=== PATIENT | male | born 1970 | race Caucasian/White ===

== ENCOUNTER 2017-08-13 23:29 | Emergency (ER) | payer BC ==
[2017-08-14] MEDS ORDERED: SILVER NITRATE APPLICATOR 1 APPLIC STICK..EA. 10/PACKAGE TOP ONE (01:25)
--- NOTE | 2017-08-14 01:41 | ER Document Report ---
ED Skin Rash/Insect Bite/Abscs - General Chief Complaint: Skin Sore(s) Stated Complaint: BLEEDING FROM POSSIBLE BITE Time Seen by Provider: 08/14/17 01:24 Mode of Arrival: Ambulatory Information source: Patient TRAVEL OUTSIDE OF THE [place] IN LAST 30 DAYS: No - HPI Patient complains to provider of: Other - bleeding Onset: Just prior to arrival Notes: Patient is here with complaints of bleeding lesion. States that he thinks he might have been bitten by an insect a few weeks ago on the right calf. He has been applying ointments to it and states that he was applying ointment to it earlier tonight when there was a scab on it. He pulled the scab off and then the wound started to bleed. States that he saw a stream of blood coming from the wound. He was able to get the blood to stop with direct pressure. Is not on blood thinning medications. He denies fever. Denies redness. He denies any significant pain. No nausea, vomiting, diarrhea. No dizziness. No chest pain or shortness of breath. No syncope. He denies any other complaints at this time. - Related Data Allergies/Adverse Reactions: No Known Allergies Allergy (Unverified 08/13/17 23:35) Past Medical History - Social History Smoking Status: Unknown if Ever Smoked Family History: Reviewed & Not Pertinent Review of Systems - Review of Systems -: Yes All other systems reviewed and negative Physical Exam - Vital signs Vitals: Temp Pulse Resp BP Pulse Ox 99.4 F 114 H 20 116/79 97 08/13/17 23:59 08/13/17 23:59 08/13/17 23:59 08/13/17 23:59 08/13/17 23:59 - Notes Notes: GENERAL: alert, cooperative, nontoxic, no distress. HEAD: normocephalic, atraumatic EYES: conjunctiva pink without discharge, no external redness or swelling. EARS: no external swelling, no external redness NOSE: atraumatic, no external swelling MOUTH/THROAT: mucous membranes moist and pink NECK: soft, supple, full range of motion, no meningismus. CHEST: no distress, lungs clear and equal throughout. No wheezing, rales, rhonchi. CARDIAC: regular rate and rhythm, no murmur, normal capillary refill, normal pulses. BACK: full range of motion, no CVA tenderness. EXTREMITIES: full range of motion of all extremities. No redness, no swelling. Superficial lesion to the right posterior calf. Small amount of venous oozing noted. No pulsatile blood flow. There is no surrounding redness. No fluctuance. No drainage. Normal pulse and sensation distally. No rash. NEURO: alert and oriented 3, no focal deficits, full range of motion of all extremities. PYSCH: appropriate mood, affect. Patient is cooperative. SKIN: pink, warm, dry, no rash. Course - Re-evaluation Re-evalutation: 08/14/17 02:03 Patient is nontoxic-appearing with stable vitals. The patient is here with a bleeding lesion to the right lower leg. He thinks he may have been bitten by a bug a few weeks ago. States that he had formed a scab over this area and tonight when he picked the scab off it started to bleed. He states that it bled quite a bit and was having trouble getting it stopped. On exam he has a superficial wound has some mild old venous oozing. Possible it could be near superficial varicose vein. There is no pulsatile blood at this time. There is no redness or signs of infection. Patient had the area cleaned and using silver nitrate I was able to cauterize the lesion. There was no further bleeding. I then applied a quick clot dressing as well as a Telfa and a Coban dressing. At this point the patient has no active bleeding. He was instructed to keep this dressing in place for the next 48 hours. After that he can remove the dressing, gently clean the wound. And avoid picking the scab. He was instructed that if it starts to bleed again to add more gauze and pressure to the dressing he has on at this time. If he is unable to get that to stop bleeding and he should follow up or return. He should follow-up sooner if he develops any fevers, or has any further concerns. The patient's emergency department workup and current diagnosis were explained to the patient and or family. Follow-up instructions were provided. Medications if prescribed were discussed. Instructions for when to return to the emergency department including specific worrisome symptoms were discussed with the patient and/or family. - Vital Signs Vital signs: Temp Pulse Resp BP Pulse Ox 99.4 F 114 H 20 116/79 97 08/13/17 23:59 06/18/18 23:59 08/13/17 23:59 08/13/17 23:59 08/13/17 23:59 Discharge - Discharge Clinical Impression: Bleeding from wound Condition: Stable Disposition: HOME, SELF-CARE Instructions: Dressing Instructions for Open Wounds ([facility]) Additional Instructions: Keep dressing in place for the next 48 hours. Afterward you can clean the wound gently with soap and water. Follow-up for worsening pain, fever, redness , drainage, numbness, tingling, weakness, any further concerns. If the wound starts to bleed again, apply pressure. If you are unable to get the wound to stop bleeding, have this reevaluated or return the emergency department. Forms: Smoking Cessation Education Referrals: WILLIAM RIVERA MD [HONORARY] - Follow up as needed
[2017-08-14 02:32] VITALS: BP 112/78
== END 2017-08-14 02:32 | disposition home or self-care (01) ==
LOC: ER 23:29
DX: L98.9 Disorder of the skin and subcutaneous tissue, unspecified (principal); R58 Hemorrhage, not elsewhere classified
CPT/HCPCS: 99283

== ENCOUNTER → 2019-09-08 | Outpatient (CLI) | payer BC ==
--- NOTE | 2019-09-08 12:52 | RADIOLOGY REPORT (SQ) ---
EXAM DESCRIPTION: U/S ABDOMEN LIMITED W/O DOP IMAGES COMPLETED DATE/TIME: 09/08/2019 12:36 pm REASON FOR STUDY: (R10.11)RIGHT UPPER QUADRANT PAIN R10.11 RIGHT UPPER QUADRANT PAIN COMPARISON: None. TECHNIQUE: Dynamic and static grayscale images acquired of the abdomen and recorded on PACS. Additio nal selected color Doppler and spectral images recorded. LIMITATIONS: None. FINDINGS: PANCREAS: No masses. Visualized pancreatic duct normal caliber. LIVER: Slightly increased echogenicity. No masses. LIVER VASCULATURE: Normal directional flow of the main portal vein and hepatic veins. GALLBLADDER: No stones. Normal wall thickness. No pericholecystic fluid. ULTRASOUND-DETECTED HERNANDEZ'S SIGN: Negative. INTRAHEPATIC DUCTS AND COMMON DUCT: CBD and intrahepatic ducts normal caliber. No filling defects. AORTA: No aneurysm. RIGHT KIDNEY: Normal size, 10.8 cm. Normal echogenicity. No solid or suspicious masses. No hydroneph rosis. No calcifications. PERITONEAL AND RIGHT PLEURAL SPACE: No ascites or effusions. OTHER: No other significant findings. IMPRESSION: Mild hepatic steatosis. TECHNICAL DOCUMENTATION: JOB ID: [id number] 2010 [employer]- All Rights Reserved Reading location - IP/workstation name: [email or web address]
== END ==
LOC: RAD 12:01
PROVIDERS: ATTEND Nurse Practitioner Family
DX: R10.11 Right upper quadrant pain (principal); K76.0 Fatty (change of) liver, not elsewhere classified
CPT/HCPCS: 76705

== ENCOUNTER 2019-09-09 12:42 | Inpatient (IN) | payer BC ==
[~2019-09-09 12:42] MED LIST: GLYCOPYRROLATE 1 MG/5 ML VIAL ONE; KETOROLAC TROMETHAMINE 60 MG/2 ML SDV ONE; NEOSTIGMINE METHYLSULFATE 10 MG/10 ML VIAL ONE; ONDANSETRON HCL INJ/PF 4 MG/2 ML SDV ONE; PHENYLEPHRINE HCL INJ/PF 10 MG/1 ML SDV ONE; ROCURONIUM BROMIDE INJ 50 MG/5 ML VIAL IV ONE; SUCCINYLCHOLINE CHLORIDE INJ 200 MG/10 ML VIAL ONE
[2019-09-09] MEDS ORDERED: RINGERS LACTATED IV ONE (13:38)
[2019-09-09] MEDS ORDERED: ACETAMINOPHEN 325 MG TABLET PO ONE (13:38)
--- NOTE | 2019-09-09 13:39 | ER Document Report ---
ED GI/ - General Chief Complaint: Fever Stated Complaint: ABDOMINAL PAIN/FEVER Time Seen by Provider: 09/09/19 13:19 Information source: Patient Notes: Patient presents with right upper quadrant pain for the past 3 days. Patient states yesterday had a temperature of 104. Patient denies any cough or cold symptoms. Patient denies any nausea vomiting or diarrhea. Patient denies any urinary symptoms. Patient states that he was seen in urgent care and told he had H. pylori. Patient was prescribed multiple antibiotics as well as omeprazole yesterday. TRAVEL OUTSIDE OF THE [place] IN LAST 30 DAYS: No - HPI Patient complains to provider of: Abdominal pain. No: Vomiting Onset: Other - 3 days Timing/Duration: Persistent Quality of pain: Achy Location: RUQ Associated symptoms: Fever. denies: Chest pain, Dizzy, Dysuria, Nausea, Urinary hesitancy, Urinary frequency, Urinary retention, Urinary urgency, Vomiting Exacerbated by: Denies Relieved by: Denies Similar symptoms previously: No Recently seen / treated by doctor: Yes - Related Data Allergies/Adverse Reactions: No Known Allergies Allergy (Unverified 08/13/17 23:35) Past Medical History - General Information source: Patient - Social History Smoking Status: Never Smoker Frequency of alcohol use: None Drug Abuse: None Occupation: land survey Lives with: Family Family History: Reviewed & Not Pertinent Renal/ Medical History: Denies: Hx Peritoneal Dialysis GI Medical History: Reports: Other - h pylori Surgical Hx: Negative Review of Systems - Review of Systems Constitutional: Chills, Fever EENT: No symptoms reported Cardiovascular: No symptoms reported. denies: Chest pain Respiratory: No symptoms reported. denies: Cough, Short of breath Gastrointestinal: Abdominal pain. denies: Diarrhea, Nausea, Vomiting Genitourinary: No symptoms reported. denies: Dysuria, Flank pain Male Genitourinary: No symptoms reported Musculoskeletal: No symptoms reported. denies: Back pain Skin: No symptoms reported Hematologic/Lymphatic: No symptoms reported Neurological/Psychological: No symptoms reported. denies: Headaches Physical Exam - Vital signs Vitals: Temp Pulse Resp BP Pulse Ox 102.7 F H 129 H 20 124/92 H 96 09/09/19 12:48 09/09/19 12:48 09/09/19 12:48 09/09/19 12:48 07/14/20 12:48 - General General appearance: Appears well, Alert In distress: None - HEENT Head: Normocephalic, Atraumatic Eyes: Normal Conjunctiva: Normal Nasal: Normal Mouth/Lips: Normal Mucous membranes: Normal Neck: Normal, Supple. No: Lymphadenopathy, Meningismus - Respiratory Respiratory status: No respiratory distress Chest status: Nontender Breath sounds: Rales - Right lower lobe Chest palpation: Normal - Cardiovascular Rhythm: Regular Heart sounds: S1 appreciated, S2 appreciated Murmur: No - Abdominal Inspection: Normal Distension: No distension Bowel sounds: Normal Tenderness: Tender - RUQ, mild RLQ tenderness Organomegaly: No organomegaly - Back Back: Normal, Nontender. No: CVA tenderness - Extremities General upper extremity: Normal inspection, Nontender, Normal strength General lower extremity: Normal inspection, Nontender, Normal strength - Neurological Neuro grossly intact: Yes Cognition: Normal Strawn Coma Scale Eye Opening: Spontaneous Strawn Coma Scale Verbal: Oriented Strawn Coma Scale Motor: Obeys Commands Jhonatan Coma Scale Total: 15 - Psychological Associated symptoms: Normal affect, Normal mood - Skin Skin Temperature: Warm Skin Moisture: Dry Skin Color: Normal Course - Re-evaluation Re-evalutation: 09/09/19 16:07 Radiologist called stating patient CT report demonstrated acute appendicitis. Call placed for consultation with surgeon. 09/09/19 16:[address] Pryor who does agree to evaluate patient. Recommends starting Ancef and Flagyl and he will be down to see patient. 09/09/19 16:15 Nursing staff advised of need for rapid COVID test at this time. 09/09/19 17:10 RN states that she was advised that patient was not to be admitted per the surgeon. Call was then placed for consultation with Dr. Pryor again advising him of patient's leukocytosis with a shift, persistent tachycardia and now hypot ension despite IV fluid administration of 30 mL/kg. Discussed concerns about sepsis criteria. Discussed results of chest x-ray as well as urinalysis. Offered consultation with medicine at this time, Dr. Pryor advises holding any medicine consult at this time. Consulted with Dr. Constantino who advises giving additional liter of fluids. - Vital Signs Vital signs: Temp Pulse Resp BP Pulse Ox 98.5 F 96 19 100/90 H 97 09/09/19 18:10 09/09/19 18:10 09/09/19 19:00 09/09/19 19:00 09/09/19 19:00 - Laboratory Result Diagrams: 09/09/19 14:13 09/09/19 14:13 Laboratory results interpreted by me: 09/09/19 09/09/19 09/09/19 14:13 14:13 14:13 WBC 15.7 H RBC 5.61 H Hgb 18.6 H Hct 53.1 H Seg Neuts % (Manual) 89 H Band Neutrophils % 1 L Lymphocytes % (Manual) 2 L Abs Neuts (Manual) 14.1 H Abs Lymphs (Manual) 0.3 L Creatinine 1.31 H Est GFR (MDRD) Non-Af 58 L AST 131 H ALT 261 H Total Protein 9.0 H Urine Protein 100 H Urine Urobilinogen 4.0 H Ur Leukocyte Esterase MODERATE H Labs- All tests 24 hr 09/09/19 09/09/19 09/09/19 14:13 14:13 14:13 WBC 15.7 H RBC 5.61 H Hgb 18.6 H Hct 53.1 H MCV 95 MCH 33.1 MCHC 35.0 RDW 12.8 Plt Count 185 Lymph % (Auto) Not Reportable Schuyler % (Auto) Not Reportable Eos % (Auto) Not Reportable Baso % (Auto) Not Reportable Absolute Neuts (auto) Not Reportable Absolute Lymphs (auto) Not Reportable Absolute Monos (auto) Not Reportable Absolute Eos (auto) Not Reportable Absolute Basos (auto) Not Reportable Total Counted 100 Seg Neutrophils % Not Reportable Seg Neuts % (Manual) 89 H Band Neutrophils % 1 L Lymphocytes % (Manual) 2 L Monocytes % (Manual) 7 Eosinophils % (Manual) 1 Basophils % (Manual) 0 Abs Neuts (Manual) 14.1 H Abs Lymphs (Manual) 0.3 L Abs Monocytes (Manual) 1.1 Absolute Eos (Manual) 0.2 Abs Basophils (Manual) 0.0 Toxic Granulation SLIGHT Platelet Comment ADEQUATE RBC Morph Comment NORMO-CYTIC/CHROMIC PT 13.9 INR 1.07 VBG pH VBG pCO2 VBG HCO3 VBG Base Excess Sodium 137.2 Potassium 3.9 Chloride 101 Carbon Dioxide 28 Anion Gap 8 BUN 18 Creatinine 1.31 H Est GFR ( Amer) > 60 Est GFR (MDRD) Non-Af 58 L Glucose 110 POC Glucose Lactic Acid Calcium 9.3 Total Bilirubin 1.0 Direct Bilirubin 0.2 Neonat Total Bilirubin Not Reportable Neonat Direct Bilirubin Not Reportable Neonat Indirect Bili Not Reportable AST 131 H ALT 261 H Alkaline Phosphatase 79 Total Protein 9.0 H Albumin 4.7 Lipase 181.2 Urine Color Urine Appearance Urine pH Ur Specific [place] Urine Protein Urine Glucose (UA) Urine Ketones Urine Blood Urine Nitrite Urine Bilirubin Urine Urobilinogen Ur Leukocyte Esterase Urine WBC (Auto) Urine RBC (Auto) Squamous Epi Cells Auto Amorphous Sediment Auto Urine Mucus (Auto) Urine Ascorbic Acid 09/09/19 09/09/19 09/09/19 14:13 14:13 14:13 WBC RBC Hgb Hct MCV MCH MCHC RDW Plt Count Lymph % (Auto) Schuyler % (Auto) Eos % (Auto) Baso % (Auto) Absolute Neuts (auto) Absolute Lymphs (auto) Absolute Monos (auto) Absolute Eos (auto) Absolute Basos (auto) Total Counted Seg Neutrophils % Seg Neuts % (Manual) Band Neutrophils % Lymphocytes % (Manual) Monocytes % (Manual) Eosinophils % (Manual) Basophils % (Manual) Abs Neuts (Manual) Abs Lymphs (Manual) Abs Monocytes (Manual) Absolute Eos (Manual) Abs Basophils (Manual) Toxic Granulation Platelet Comment RBC Morph Comment PT INR VBG pH 7.41 VBG pCO2 44.3 VBG HCO3 27.6 VBG Base Excess 2.4 Sodium Potassium Chloride Carbon Dioxide Anion Gap BUN Creatinine Est GFR ( Amer) Est GFR (MDRD) Non-Af Glucose POC Glucose Lactic Acid 1.0 Calcium Total Bilirubin Direct Bilirubin Neonat Total Bilirubin Neonat Direct Bilirubin Neonat Indirect Bili AST ALT Alkaline Phosphatase Total Protein Albumin Lipase Urine Color JENI Urine Appearance SLIGHTLY-CLOUDY Urine pH 6.0 Ur Specific [place] 1.026 Urine Protein 100 H Urine Glucose (UA) NEGATIVE Urine Ketones NEGATIVE Urine Blood NEGATIVE Urine Nitrite NEGATIVE Urine Bilirubin NEGATIVE Urine Urobilinogen 4.0 H Ur Leukocyte Esterase MODERATE H Urine WBC (Auto) 56 Urine RBC (Auto) 5 Squamous Epi Cells Auto 1 Amorphous Sediment Auto TRACE Urine Mucus (Auto) RARE Urine Ascorbic Acid NEGATIVE 09/09/19 14:18 WBC RBC Hgb Hct MCV MCH MCHC RDW Plt Count Lymph % (Auto) Schuyler % (Auto) Eos % (Auto) Baso % (Auto) Absolute Neuts (auto) Absolute Lymphs (auto) Absolute Monos (auto) Absolute Eos (auto) Absolute Basos (auto) Total Counted Seg Neutrophils % Seg Neuts % (Manual) Band Neutrophils % Lymphocytes % (Manual) Monocytes % (Manual) Eosinophils % (Manual) Basophils % (Manual) Abs Neuts (Manual) Abs Lymphs (Manual) Abs Monocytes (Manual) Absolute Eos (Manual) Abs Basophils (Manual) Toxic Granulation Platelet Comment RBC Morph Comment PT INR VBG pH VBG pCO2 VBG HCO3 VBG Base Excess Sodium Potassium Chloride Carbon Dioxide Anion Gap BUN Creatinine Est GFR ( Amer) Est GFR (MDRD) Non-Af Glucose POC Glucose 106 Lactic Acid Calcium Total Bilirubin Direct Bilirubin Neonat Total Bilirubin Neonat Direct Bilirubin Neonat Indirect Bili AST ALT Alkaline Phosphatase Total Protein Albumin Lipase Urine Color Urine Appearance Urine pH Ur Specific [place] Urine Protein Urine Glucose (UA) Urine Ketones Urine Blood Urine Nitrite Urine Bilirubin Urine Urobilinogen Ur Leukocyte Esterase Urine WBC (Auto) Urine RBC (Auto) Squamous Epi Cells Auto Amorphous Sediment Auto Urine Mucus (Auto) Urine Ascorbic Acid - Diagnostic Test Radiology reviewed: Image reviewed, Reports reviewed Discharge - Discharge Clinical Impression: Fever Qualifiers: Fever type: unspecified Qualified Code(s): R50.9 - Fever, unspecified Abdominal pain Qualifiers: Abdominal location: unspecified location Qualified Code(s): R10.9 - Unspecified abdominal pain Acute appendicitis Qualifiers: Acute appendicitis type: unspecified acute appendicitis type Qualified Code(s): K35.80 - Unspecified acute appendicitis Condition: Fair Disposition: ADMITTED INPATIENT Admitting Provider: Surgicalist
--- NOTE | 2019-09-09 14:32 | EKG REPORT ---
SEVERITY:- OTHERWISE NORMAL ECG - SINUS TACHYCARDIA ATRIAL PREMATURE COMPLEX : Confirmed by: Sam Mcdonald MD 09-Sep-2019 14:31:15
[2019-09-09 14:50] LABS: VENOUS BLOOD BASE EXCESS 2.4 mmol/L; VENOUS BLOOD HCO3 27.6 mmol/L (20-32); VENOUS BLOOD PCO2 44.3 mmHg (35-63); VENOUS BLOOD PH 7.41 (7.30-7.42)
[2019-09-09 14:51] LABS: AMORPHOUS SEDIMENT,URINE TRACE /HPF
[2019-09-09 14:52] LABS: INTERNATIONAL RATION (INR) 1.07; PROTHROMBIN TIME 13.9 SEC (11.4-15.4)
[2019-09-09 14:53] LABS: APPEARANCE,URINE SLIGHTLY-CLOUDY; BILIRUBIN,URINE NEGATIVE (NEGATIVE); COLOR,URINE AMBER; GLUCOSE, URINE NEGATIVE (NEGATIVE); KETONES,URINE NEGATIVE (NEGATIVE); LEUKOCYTE ESTERASE,URINE MODERATE (NEGATIVE); NITRITE,URINE NEGATIVE (NEGATIVE); PROTEIN,URINE 100 mg/dL (NEGATIVE); URINE SPECIFIC GRAVITY 1.026
--- NOTE | 2019-09-09 14:57 | RADIOLOGY REPORT (SQ) ---
EXAM DESCRIPTION: CHEST SINGLE VIEW IMAGES COMPLETED DATE/TIME: 09/09/2019 2:45 pm REASON FOR STUDY: RUQ pain, fever COMPARISON: None. EXAM PARAMETERS: NUMBER OF VIEWS: One view. TECHNIQUE: Single frontal radiographic view of the chest acquired. RADIATION DOSE: NA LIMITATIONS: None. FINDINGS: LUNGS AND PLEURA: Low lung volumes limits the examination. Mild linear subsegmental pare nchymal densities in the lower lungs, may be on the basis of atelectasis/infiltrates. No pneumothora x or pleural effusions. MEDIASTINUM AND HILAR STRUCTURES: Normal contour. HEART AND VASCULAR STRUCTURES: Heart normal in size. Normal vasculature. BONES: No acute findings. HARDWARE: None in the chest. OTHER: No other significant finding. IMPRESSION: 1. Low lung volumes limits examination. Mild linear subsegmental parenchymal densities in the lower lungs may be on the basis of atelectasis/infiltrates. TECHNICAL DOCUMENTATION: JOB ID: [id number] 2010 [employer]- All Rights Reserved Reading location - IP/workstation name: [email or web address]
[2019-09-09 14:58] LABS: HEMATOCRIT 53.1 % (37.9-51.0); HEMOGLOBIN 18.6 g/dL (13.5-17.0); MEAN CORPUSCULAR HEMOGLOBIN 33.1 pg (27.0-33.4); MEAN CORPUSCULAR VOLUME 95 fl (80-97); PLATELET COUNT 185 10^3/uL (150-450); RED BLOOD COUNT 5.61 10^6/uL (4.35-5.55); RED CELL DISTRIBUTION WIDTH 12.8 % (11.5-14.0); WHITE BLOOD COUNT 15.7 10^3/uL (4.0-10.5)
[2019-09-09 15:06] LABS: ALBUMIN 4.7 g/dL (3.5-5.0); ALKALINE PHOSPHATASE 79 U/L (38-126); ANION GAP 8 (5-19); ASPARTATE AMINO TRANSFERASE 131 U/L (17-59); BILIRUBIN,DIRECT 0.2 mg/dL (0.0-0.4); BLOOD UREA NITROGEN 18 mg/dL (7-20); CALCIUM 9.3 mg/dL (8.4-10.2); CARBON DIOXIDE 28 mmol/L (22-30); CHLORIDE 101 mmol/L (98-107); GLUCOSE 110 mg/dL (75-110); POTASSIUM 3.9 mmol/L (3.6-5.0)
[2019-09-09 15:17] LABS: ABSOLUTE LYMPHOCYTES# (MANUAL) 0.3 10^3/uL (0.5-4.7); ABSOLUTE MONOCYTES # (MANUAL) 1.1 10^3/uL (0.1-1.4); BAND NEUTROPHILS % (MANUAL) 1 % (3-5); BASOPHILS % (MANUAL) 0 % (0-2); EOSINOPHILS % (MANUAL) 1 % (0-6); LYMPHOCYTES % (MANUAL) 2 % (13-45); MONOCYTES % (MANUAL) 7 % (3-13); SEGMENTED NEUTROPHILS % (MAN) 89 % (42-78); TOTAL CELLS COUNTED 100
[2019-09-09 15:19] LABS: PLATELET COMMENT ADEQUATE; RBC MORPHOLOGY COMMENT NORMO-CYTIC/CHROMIC; TOXIC GRANULATION SLIGHT
[2019-09-09] MEDS ORDERED: CEFTRIAXONE 1 GM/D5W RTU 1 GM/50 ML RTUPB IV ONE (15:22)
[2019-09-09] MEDS ORDERED: FENTANYL CITRATE INJ/PF 100 MCG/2 ML AMPUL IV ONE ×3 (15:28→19:50)
[2019-09-09] MEDS ORDERED: PIPERACILLIN/TAZOBACTAM 3.375 GM VIAL IV ONE (16:11)
[2019-09-09] MEDS ORDERED: METRONIDAZOLE 500 MG/NS RTU 500 MG/100 ML RTUPB IV ONE (16:11)
[2019-09-09] MEDS ORDERED: CEFAZOLIN 1 GM/D5W RTU 1 GM/50 ML RTUPB IV ONE (16:11)
--- NOTE | 2019-09-09 16:11 | RADIOLOGY REPORT (SQ) ---
EXAM DESCRIPTION: CT ABD/PELVIS WITH IV ONLY IMAGES COMPLETED DATE/TIME: 09/09/2019 3:44 pm REASON FOR STUDY: RUQ, RLQ pain, +fever COMPARISON: None. TECHNIQUE: CT scan of the abdomen and pelvis performed using helical scanning technique with dynamic intravenous contrast injection. No oral contrast. Images reviewed with lung, soft tissue, and bone windows. Reconstructed coronal and sagittal MPR images reviewed. Delayed images for evaluation of the urinary system also acquired. All images stored on PACS. All CT scanners at this facility use dose modulation, iterative reconstruction, and/or weight based d osing when appropriate to reduce radiation dose to as low as reasonably achievable (ALARA). [facility]: Dose Right [facility]: CareDose [facility]: Dose Right [facility]: Teradose 4D [facility]: Jivox CONTRAST TYPE AND DOSE: contrast/concentration: Isovue 350.00 mmol/ml; Total Contrast Delivered: 96. 0 ml; Total Saline Delivered: 55.0 ml RENAL FUNCTION: GFR > 60. RADIATION DOSE: CT Rad equipment meets quality standard of care and radiation dose reduction techniq ues were employed. CTDIvol: 11.5 - 15.9 mGy. DLP: 1708 mGy-cm.. LIMITATIONS: None. FINDINGS: LOWER CHEST: No significant findings. No nodules or infiltrates. LIVER: Normal size. No masses. No dilated ducts. SPLEEN: Normal size. No focal lesions. PANCREAS: No masses. No significant calcifications. No adjacent inflammation or peripancreatic fluid collections. Pancreatic duct not dilated. GALLBLADDER: No identified stones by CT criteria. No inflammatory changes to suggest cholecystitis. ADRENAL GLANDS: No significant masses or asymmetry. RIGHT KIDNEY AND URETER: No solid masses. No significant calcifications. No hydronephrosis or hyd roureter. LEFT KIDNEY AND URETER: No solid masses. No significant calcifications. No hydronephrosis or hydr oureter. AORTA AND VESSELS: No aneurysm. No dissection. Renal arteries, SMA, celiac without stenosis. RETROPERITONEUM: No retroperitoneal adenopathy, hemorrhage or masses. BOWEL AND PERITONEAL CAVITY: Diverticulosis sigmoid colon. No masses or inflammatory changes. No jaron e fluid or peritoneal masses. APPENDIX: Inflammation associated with dilated appendix Preview PELVIS: No mass. No free fluid. Normal bladder. ABDOMINAL WALL: No masses. No hernias. BONES: No significant or acute findings. OTHER: No other significant finding. IMPRESSION: Acute appendicitis. TECHNICAL DOCUMENTATION: JOB ID: [id number] Quality ID # [id number]: Final reports with documentation of one or more dose reduction techniques (e.g., Au tomated exposure control, adjustment of the mA and/or kV according to patient size, use of iterative reconstruction technique) 2010 [employer]- All Rights Reserved Reading location - IP/workstation name: [email or web address]
--- NOTE | 2019-09-09 16:54 | PDOC H&P ---
History of Present Illness Admission Date/PCP: NO LOCALMD History of Present Illness: MAGO DO is a 49 year old malePatient presents with right upper quadrant pain for the past 3 days. Patient states yesterday had a temperature of 104. Patient denies any cough or cold symptoms. Patient denies any nausea vomiting or diarrhea. Patient denies any urinary symptoms. Patient states that he was seen in urgent care and told he had H. pylori. Patient was prescribed multiple antibiotics as well as omeprazole yesterday Past Medical History GI Medical History: Reports: Other - h pylori Social History Lives with: Family Smoking Status: Never Smoker Family History Family History: Reviewed & Not Pertinent Parental Family History Reviewed: No Children Family History Reviewed: NA Sibling(s) Family History Reviewed.: NA Medication/Allergy Allergies/Adverse Reactions: No Known Allergies Allergy (Unverified 08/13/17 23:35) Review of Systems Constitutional: ABSENT: chills, fever(s), headache(s), weight gain, weight loss Ears: ABSENT: hearing changes Nose, Mouth, and Throat: ABSENT: as per HPI, headache(s), mouth pain, sore throat, vertigo, other Cardiovascular: ABSENT: chest pain, dyspnea on exertion, edema, orthropnea, palpitations Respiratory: ABSENT: cough, hemoptysis Gastrointestinal: PRESENT: abdominal pain, nausea Genitourinary: ABSENT: as per HPI, difficulty urinating, dysuria, hematuria, nocturia, other Musculoskeletal: ABSENT: as per HPI, back pain, deformity, joint swelling, musc le weakness, other Integumentary: ABSENT: rash, wounds Neurological: ABSENT: abnormal gait, abnormal speech, confusion, dizziness, focal weakness, syncope Psychiatric: ABSENT: anxiety, depression, homidical ideation, suicidal ideation Endocrine: ABSENT: as per HPI, cold intolerance, flushing, heat intolerance, menstrual abnormalities, polydipsia, polyphagia, polyuria, other Hematologic/Lymphatic: ABSENT: as per HPI, easy bleeding, easy bruising, lymphadenopathy, other Physical Exam Vital Signs: Temp Pulse Resp BP Pulse Ox 99.7 F 129 H 22 H 92/63 L 97 09/09/19 15:21 09/09/19 12:48 09/09/19 16:00 09/09/19 16:00 09/09/19 16:00 Intake & Output 09/08/19 09/09/19 09/10/19 06:59 06:59 06:59 Intake Total 50 Balance 50 Weight 83.915 kg General appearance: PRESENT: no acute distress Head exam: PRESENT: normocephalic Eye exam: PRESENT: EOMI Ear exam: PRESENT: TM's normal bilaterally Mouth exam: PRESENT: moist Neck exam: PRESENT: full ROM Respiratory exam: PRESENT: clear to auscultation geoffrey Cardiovascular exam: PRESENT: RRR Pulses: PRESENT: normal radial pulses, normal femoral pulses Vascular exam: PRESENT: normal capillary refill GI/Abdominal exam: PRESENT: rebound, tenderness Rectal exam: PRESENT: deferred Extremities exam: PRESENT: full ROM Musculoskeletal exam: PRESENT: full ROM Neurological exam: PRESENT: alert, awake, oriented to person, oriented to place Psychiatric exam: PRESENT: appropriate affect Skin exam: PRESENT: dry Results Laboratory Results: 09/09/19 14:13 09/09/19 14:13 09/09/19 09/09/19 09/09/19 14:13 14:13 14:13 WBC 15.7 H RBC 5.61 H Hgb 18.6 H Hct 53.1 H MCV 95 MCH 33.1 MCHC 35.0 RDW 12.8 Plt Count 185 Seg Neutrophils % Not Reportable VBG pH 7.41 VBG pCO2 44.3 VBG HCO3 27.6 VBG Base Excess 2.4 Sodium 137.2 Potassium 3.9 Chloride 101 Carbon Dioxide 28 Anion Gap 8 BUN 18 Creatinine 1.31 H Est GFR ( Amer) > 60 Glucose 110 Lactic Acid Calcium 9.3 Total Bilirubin 1.0 AST 131 H Alkaline Phosphatase 79 Total Protein 9.0 H Albumin 4.7 Lipase 181.2 Urine Color Urine Appearance Urine pH Ur Specific [place] Urine Protein Urine Glucose (UA) Urine Ketones Urine Blood Urine Nitrite Ur Leukocyte Esterase Urine WBC (Auto) Urine RBC (Auto) 09/09/19 09/09/19 14:13 14:13 WBC RBC Hgb Hct MCV MCH MCHC RDW Plt Count Seg Neutrophils % VBG pH VBG pCO2 VBG HCO3 VBG Base Excess Sodium Potassium Chloride Carbon Dioxide Anion Gap BUN Creatinine Est GFR ( Amer) Glucose Lactic Acid 1.0 Calcium Total Bilirubin AST Alkaline Phosphatase Total Protein Albumin Lipase Urine Color JENI Urine Appearance SLIGHTLY-CLOUDY Urine pH 6.0 Ur Specific [place] 1.026 Urine Protein 100 H Urine Glucose (UA) NEGATIVE Urine Ketones NEGATIVE Urine Blood NEGATIVE Urine Nitrite NEGATIVE Ur Leukocyte Esterase MODERATE H Urine WBC (Auto) 56 Urine RBC (Auto) 5 Impressions: Chest X-Ray 09/09/19 13:38 IMPRESSION: 1. Low lung volumes limits examination. Mild linear subsegmental parenchymal densities in the lower lungs may be on the basis of atelectasis/infiltrates. Abdomen/Pelvis CT 09/09/19 15:04 IMPRESSION: Acute appendicitis. Assessment & Plan - Diagnosis (1) Acute appendicitis Qualifiers: Acute appendicitis type: unspecified acute appendicitis type Qualified Code(s): K35.80 - Unspecified acute appendicitis - Plan Summary Plan Summary: impression, acute appendicitis plan laparoscopic appendectomy
[2019-09-09] MEDS ORDERED: RINGERS SOLUTION,LACTATED 1,000 ML IV ONE ×2 (17:07→17:59)
[2019-09-09] MEDS ORDERED: FENTANYL CITRATE INJ/PF 100 MCG/2 ML AMPUL ONE (19:54)
[2019-09-09] MEDS ORDERED: MORPHINE SULFATE 10 MG/ML INJ ONE (19:54)
[2019-09-09] MEDS ORDERED: MIDAZOLAM 2 MG/2 ML INJ ONE (19:54)
[2019-09-09] MEDS ORDERED: PROPOFOL INJ 200 MG/20 ML VIAL IV ONE (19:54)
[2019-09-09] MEDS ORDERED: BUPIVACAINE INJ/PF LIPOSOME/PF 266 MG/20 ML SDV ONE (20:59)
[2019-09-09] MEDS ORDERED: FENTANYL CITRATE INJ/PF 100 MCG/2 ML AMPUL IV PRN ×3 (21:21)
[2019-09-09] MEDS ORDERED: MORPHINE SULFATE 10 MG/ML INJ IV PRN ×2 (21:21→21:28)
[2019-09-09] MEDS ORDERED: MEPERIDINE HCL/PF INJ 25 MG/1 ML DISP.SYRIN IV PRN (21:21)
[2019-09-09] MEDS ORDERED: PROMETHAZINE HCL INJ 25 MG/1 ML VIAL IV PRN ×2 (21:21)
[2019-09-09] MEDS ORDERED: ONDANSETRON HCL INJ/PF 4 MG/2 ML SDV IV PRN (21:21)
[2019-09-09] MEDS ORDERED: OXYCODONE-ACETAMINOPHEN 5-325 MG TABLET PO PRN ×2 (21:21)
[2019-09-09] MEDS ORDERED: DIPHENHYDRAMINE HCL 50 MG/ML VIAL IV PRN (21:21)
[2019-09-09] MEDS ORDERED: ACETAMINOPHEN 325 MG TABLET PO PRN (21:28)
[2019-09-09] MEDS ORDERED: ONDANSETRON 4 MG TAB.RAPDIS PO PRN (21:28)
--- NOTE | 2019-09-09 21:37 | Operative Report ---
Nonrecallable Operative Report DATE OF SURGERY: 09/09/19 PREOPERATIVE DIAGNOSIS: appendicitis POSTOPERATIVE DIAGNOSIS: ruptured appendicitis OPERATION: laparoscopic appendectomy SURGEON: DANICA POST ANESTHESIA: GA TISSUE REMOVED OR ALTERED: appendix COMPLICATIONS: none ESTIMATED BLOOD LOSS: 50cc. INTRAOPERATIVE FINDINGS: ruptured appendix PROCEDURE: Patient was brought to the operating room awake alert in stable condition placed on the operating table supine position just under general anesthesia intuba varies needle was placed into the umbilicus and the abdomen was insufflated with 6 L of CO2 gas and infraumbilical 5 mm incision was made with a 15 blade and a 5 mm port placed in the abdominal cavity intra-abdominal visualization revealed no evidence of a varies needle or trocar injury. A suprapubic 5 mm port was placed under direct vision and a left lower quadrant 10 mm port all under direct vision. The appendix was noted to be in a retrocecal position inflamed and perforated with a surrounding area of phlegmon. This took some blunt dissection with the suction seal mixing operator to mobilize the appendix and then divide the peritoneum along the lateral wall on the right side with the Bovie cautery to mobilize the cecum medially and identified the ruptured appendix was placed on traction we came across the base the appendix on the cecum with 1 firing the Endo KURTIS stapler with a blue load we then mobilized the fatty tissue and phlegmon away from the lateral wall the colon with blunt and sharp dissection finally able to remove it and placed in Endobag and removed through the left lower quadrant port site. We irrigated the right upper quadrant and right lateral abdomen with normal saline suctioned dry we irrigated the pelvis with normal saline suctioned dry we then closed the fascial defect in the left lower quadrant with 0 Vicryl to close all 3 skin incisions with intracuticular 4-0 Maxon Steri-Strips completed the procedure estimated blood loss was approximately 50 cc sponge and needle counts correct x2 the patient was awakened in the operative extubated transferred recovery in stable condition. No complications.
[2019-09-09] MEDS: CEFAZOLIN 1 GM/D5W RTU 1 GM/50 ML RTUPB IV SCH (23:07)
[2019-09-09] MEDS: FAMOTIDINE INJ/PF 20 MG/2 ML SDV IV SCH (23:08)
[2019-09-09] MEDS: METRONIDAZOLE 500 MG/NS RTU 500 MG/100 ML RTUPB IV SCH (23:50)
[2019-09-10 06:01] LABS: ABSOLUTE EOSINOPHILS # (AUTO) 0.1 10^3/uL (0.0-0.6); ABSOLUTE LYMPHOCYTES (AUTO) 0.8 10^3/uL (0.5-4.7); ABSOLUTE MONOCYTES (AUTO) 0.9 10^3/uL (0.1-1.4); ABSOLUTE NEUT (AUTO) 8.6 10^3/uL (1.7-8.2); EOSINOPHILS % (AUTO) 1.1 % (0-6); HEMATOCRIT 43.9 % (37.9-51.0); LYMPHOCYTES % (AUTO) 7.2 % (13-45); MEAN CORPUSCULAR HGB CONC 34.3 g/dL (32.0-36.0); MEAN CORPUSCULAR VOLUME 96 fl (80-97); MONOCYTES % (AUTO) 8.7 % (3-13); PLATELET COUNT 150 10^3/uL (150-450); RED BLOOD COUNT 4.57 10^6/uL (4.35-5.55); RED CELL DISTRIBUTION WIDTH 13.1 % (11.5-14.0); TOTAL CELLS COUNTED % (AUTO) 100 %; WHITE BLOOD COUNT 10.4 10^3/uL (4.0-10.5)
[2019-09-10 06:04] LABS: HEMOGLOBIN 15.1 g/dL (13.5-17.0)
[2019-09-10] MEDS: CEFAZOLIN 1 GM/D5W RTU 1 GM/50 ML RTUPB IV SCH ×3 (06:05→22:03)
[2019-09-10] MEDS: POTASSI CL 20 MEQ/D5-1/2NS 1L 1,000 ML IV PRN ×2 (06:08→22:08)
[2019-09-10 06:21] LABS: BLOOD UREA NITROGEN 14 mg/dL (7-20); CARBON DIOXIDE 28 mmol/L (22-30); GLUCOSE 91 mg/dL (75-110); POTASSIUM 4.2 mmol/L (3.6-5.0)
[2019-09-10 06:26] LABS: CHLORIDE 103 mmol/L (98-107)
[2019-09-10 06:27] LABS: ANION GAP 4 (5-19)
[2019-09-10] MEDS: METRONIDAZOLE 500 MG/NS RTU 500 MG/100 ML RTUPB IV SCH ×3 (06:58→22:46)
[2019-09-10] MEDS: FAMOTIDINE INJ/PF 20 MG/2 ML SDV IV SCH ×2 (09:32→22:09)
--- NOTE | 2019-09-10 10:00 | PDOC PROGRESS REPORT ---
Subjective Progress Note for:: 09/10/19 Subjective:: no pains when flat on bed but pains along incision sites when bends over Reason For Visit: APPENDICITIS Physical Exam Vital Signs: Temp Pulse Resp BP Pulse Ox 98.4 F 102 H 17 103/72 97 09/10/19 08:00 09/10/19 08:00 09/10/19 08:00 09/10/19 08:00 09/10/19 08:00 Intake & Output 09/09/19 09/10/19 09/11/19 06:59 06:59 06:59 Intake Total 6410 100 Output Total 20 Balance 6390 100 Weight 91.9 kg Exam: abdomen is soft, mild tenderness along incision sites Denies flatus yet Results Laboratory Results: 09/10/19 05:27 09/10/19 05:27 09/09/19 09/09/19 09/09/19 14:13 14:13 14:13 WBC 15.7 H RBC 5.61 H Hgb 18.6 H Hct 53.1 H MCV 95 MCH 33.1 MCHC 35.0 RDW 12.8 Plt Count 185 Seg Neutrophils % Not Reportable VBG pH 7.41 VBG pCO2 44.3 VBG HCO3 27.6 VBG Base Excess 2.4 Sodium 137.2 Potassium 3.9 Chloride 101 Carbon Dioxide 28 Anion Gap 8 BUN 18 Creatinine 1.31 H Est GFR ( Amer) > 60 Glucose 110 Lactic Acid Calcium 9.3 Total Bilirubin 1.0 AST 131 H Alkaline Phosphatase 79 Total Protein 9.0 H Albumin 4.7 Lipase 181.2 Urine Color Urine Appearance Urine pH Ur Specific [place] Urine Protein Urine Glucose (UA) Urine Ketones Urine Blood Urine Nitrite Ur Leukocyte Esterase Urine WBC (Auto) Urine RBC (Auto) 09/09/19 09/09/19 09/09/19 14:13 14:13 16:40 WBC RBC Hgb Hct MCV MCH MCHC RDW Plt Count Seg Neutrophils % VBG pH VBG pCO2 VBG HCO3 VBG Base Excess Sodium Potassium Chloride Carbon Dioxide Anion Gap BUN Creatinine Est GFR ( Amer) Glucose Lactic Acid 1.0 0.8 Calcium Total Bilirubin AST Alkaline Phosphatase Total Protein Albumin Lipase Urine Color JENI Urine Appearance SLIGHTLY-CLOUDY Urine pH 6.0 Ur Specific [place] 1.026 Urine Protein 100 H Urine Glucose (UA) NEGATIVE Urine Ketones NEGATIVE Urine Blood NEGATIVE Urine Nitrite NEGATIVE Ur Leukocyte Esterase MODERATE H Urine WBC (Auto) 56 Urine RBC (Auto) 5 09/10/19 09/10/19 05:27 05:27 WBC 10.4 RBC 4.57 Hgb 15.1 D Hct 43.9 MCV 96 MCH 33.0 MCHC 34.3 RDW 13.1 Plt Count 150 Seg Neutrophils % 83.0 H VBG pH VBG pCO2 VBG HCO3 VBG Base Excess Sodium 135.2 L Potassium 4.2 Chloride 103 Carbon Dioxide 28 Anion Gap 4 L BUN 14 Creatinine 1.06 Est GFR ( Amer) > 60 Glucose 91 Lactic Acid Calcium 8.0 L Total Bilirubin AST Alkaline Phosphatase Total Protein Albumin Lipase Urine Color Urine Appearance Urine pH Ur Specific [place] Urine Protein Urine Glucose (UA) Urine Ketones Urine Blood Urine Nitrite Ur Leukocyte Esterase Urine WBC (Auto) Urine RBC (Auto) Impressions: Chest X-Ray 09/09/19 13:38 IMPRESSION: 1. Low lung volumes limits examination. Mild linear subsegmental parenchymal densities in the lower lungs may be on the basis of atelectasis/infiltrates. Abdomen/Pelvis CT 09/09/19 15:04 IMPRESSION: Acute appendicitis. Assessment & Plan - Diagnosis (1) perforated acute appendicitis Is this a current diagnosis for this admission?: Yes - Time Critical Time spent with patient: 15-24 minutes - Inpatient Certification Medical Necessity: Need Close Monitoring Due to Risk of Patient Decompensation, Need for Pain Control, Need for IV Antibiotics - Plan Summary Plan Summary: POD 1 post lap appendectomyfor perforated appendix Plan: Continue IV antibiotics Increase diet Possible discharge in am
[2019-09-11 05:29] LABS: ABSOLUTE EOSINOPHILS # (AUTO) 0.2 10^3/uL (0.0-0.6); ABSOLUTE LYMPHOCYTES (AUTO) 0.8 10^3/uL (0.5-4.7); ABSOLUTE MONOCYTES (AUTO) 0.8 10^3/uL (0.1-1.4); ABSOLUTE NEUT (AUTO) 4.7 10^3/uL (1.7-8.2); BASOPHILS % (AUTO) 0.2 % (0-2); EOSINOPHILS % (AUTO) 3.1 % (0-6); HEMATOCRIT 43.3 % (37.9-51.0); HEMOGLOBIN 14.9 g/dL (13.5-17.0); LYMPHOCYTES % (AUTO) 12.8 % (13-45); MEAN CORPUSCULAR HEMOGLOBIN 32.9 pg (27.0-33.4); MEAN CORPUSCULAR HGB CONC 34.5 g/dL (32.0-36.0); MEAN CORPUSCULAR VOLUME 95 fl (80-97); MONOCYTES % (AUTO) 11.9 % (3-13); PLATELET COUNT 174 10^3/uL (150-450); RED BLOOD COUNT 4.54 10^6/uL (4.35-5.55); RED CELL DISTRIBUTION WIDTH 12.6 % (11.5-14.0); TOTAL CELLS COUNTED % (AUTO) 100 %; WHITE BLOOD COUNT 6.5 10^3/uL (4.0-10.5)
[2019-09-11] MEDS: CEFAZOLIN 1 GM/D5W RTU 1 GM/50 ML RTUPB IV SCH (05:37)
[2019-09-11] MEDS: METRONIDAZOLE 500 MG/NS RTU 500 MG/100 ML RTUPB IV SCH (06:45)
[2019-09-11] MEDS: FAMOTIDINE INJ/PF 20 MG/2 ML SDV IV SCH (09:35)
[2019-09-11 10:57] VITALS: BP 110/70
--- NOTE | 2019-09-11 12:23 | PDOC DISCHARGE SUMMARY ---
General - Admit/Disc Date/PCP Admission Date/Primary Care Provider: 09/09/19 19:55 NO LOCALMD Discharge Date: 09/11/19 - Discharge Diagnosis Final Diagnosis: Perforated acute appendicitis - Assessment Summary: Patient underwent laparoscopic appendectomy for perforated acute appendicitis on 09/09/[address] Pryor. On 09/11/2019 patient tolerated regular diet and white count remained normal. He is discharged on p.o. Tylenol as needed for pain. He can finish his anti-H. pylori medication. - Additional Information Resuscitation Status: Full Code Discharge Diet: Regular Discharge Activity: Balance Activity w/Rest, No Lifting Over 10 Pounds Referrals: SURGICALIST,SURGICAL MD [ACTIVE STAFF] - 09/24/19 9:45 am Home Medications: Multivitamin [Tab-A-Jose (Multiple Vitamin) Tablet] 1 tab PO DAILY 09/10/19 History of Present Illiness History of Present Illness: MAGO DO is a 49 year old male Hospital Course Hospital Course: Underwent laparoscopic appendectomy on 09/09/[address] Pryor for perforated acute appendicitis. On 09/11/2019 white count remained normal and tolerating regular diet and then discharge to be followed up in the surgical clinic in 2 weeks. Physical Exam Vital Signs: Temp Pulse Resp BP Pulse Ox 98.9 F 94 16 110/70 97 09/11/19 10:49 09/11/19 10:49 09/11/19 10:49 09/11/19 10:49 09/11/19 10:49 Intake & Output 09/10/19 09/11/19 09/12/19 06:59 06:59 06:59 Intake Total 6410 3976 Output Total 20 Balance 6390 3976 Weight 91.9 kg 91.2 kg Results Laboratory Results: WBC 6.5 10^3/uL (4.0-10.5) 09/11/19 04:38 RBC 4.54 10^6/uL (4.35-5.55) 09/11/19 04:38 Hgb 14.9 g/dL (13.5-17.0) 09/11/19 04:38 Hct 43.3 % (37.9-51.0) 09/11/19 04:38 MCV 95 fl (80-97) 09/11/19 04:38 MCH 32.9 pg (27.0-33.4) 09/11/19 04:38 MCHC 34.5 g/dL (32.0-36.0) 09/11/19 04:38 RDW 12.6 % (11.5-14.0) 09/11/19 04:38 Plt Count 174 10^3/uL (150-450) 09/11/19 04:38 Lymph % (Auto) 12.8 % (13-45) L 09/11/19 04:38 [place] % (Auto) 11.9 % (3-13) 09/11/19 04:38 Eos % (Auto) 3.1 % (0-6) 09/11/19 04:38 Baso % (Auto) 0.2 % (0-2) 09/11/19 04:38 Absolute Neuts (auto) 4.7 10^3/uL (1.7-8.2) 09/11/19 04:38 Absolute Lymphs (auto) 0.8 10^3/uL (0.5-4.7) 09/11/19 04:38 Absolute Monos (auto) 0.8 10^3/uL (0.1-1.4) 09/11/19 04:38 Absolute Eos (auto) 0.2 10^3/uL (0.0-0.6) 09/11/19 04:38 Absolute Basos (auto) 0.0 10^3/uL (0.0-0.2) 09/11/19 04:38 Total Counted 100 09/09/19 14:13 Seg Neutrophils % 72.0 % (42-78) 09/11/19 04:38 Seg Neuts % (Manual) 89 % (42-78) H 09/09/19 14:13 Band Neutrophils % 1 % (3-5) L 09/09/19 14:13 Lymphocytes % (Manual) 2 % (13-45) L 09/09/19 14:13 Monocytes % (Manual) 7 % (3-13) 09/09/19 14:13 Eosinophils % (Manual) 1 % (0-6) 09/09/19 14:13 Basophils % (Manual) 0 % (0-2) 09/09/19 14:13 Abs Neuts (Manual) 14.1 10^3/uL (1.7-8.2) H 09/09/19 14:13 Abs Lymphs (Manual) 0.3 10^3/uL (0.5-4.7) L 09/09/19 14:13 Abs Monocytes (Manual) 1.1 10^3/uL (0.1-1.4) 09/09/19 14:13 Absolute Eos (Manual) 0.2 10^3/uL (0.0-0.6) 09/09/19 14:13 Abs Basophils (Manual) 0.0 10^3/uL (0.0-0.2) 09/09/19 14:13 Toxic Granulation SLIGHT 09/09/19 14:13 Platelet Comment ADEQUATE 09/09/19 14:13 RBC Morph Comment NORMO-CYTIC/CHROMIC 09/09/19 14:13 PT 13.9 SEC (11.4-15.4) 09/09/19 14:13 INR 1.07 09/09/19 14:13 VBG pH 7.41 (7.30-7.42) 09/09/19 14:13 VBG pCO2 44.3 mmHg (35-63) 09/09/19 14:13 VBG HCO3 27.6 mmol/L (20-32) 09/09/19 14:13 VBG Base Excess 2.4 mmol/L 09/09/19 14:13 Sodium 135.2 mmol/L (137-145) L 09/10/19 05:27 Potassium 4.2 mmol/L (3.6-5.0) 09/10/19 05:27 Chloride 103 mmol/L (98-107) 09/10/19 05:27 Carbon Dioxide 28 mmol/L (22-30) 09/10/19 05:27 Anion Gap 4 (5-19) L 09/10/19 05:27 BUN 14 mg/dL (7-20) 09/10/19 05:27 Creatinine 1.06 mg/dL (0.52-1.25) 09/10/19 05:27 Est GFR ( Amer) > 60 (>60) 09/10/19 05:27 Est GFR (MDRD) Non-Af > 60 (>60) 09/10/19 05:27 Glucose 91 mg/dL (75-110) 09/10/19 05:27 POC Glucose 106 mg/dL (70-110) 09/09/19 14:18 Lactic Acid 0.8 mmol/L (0.7-2.1) 09/09/19 16:40 Calcium 8.0 mg/dL (8.4-10.2) L 09/10/19 05:27 Total Bilirubin 1.0 mg/dL (0.2-1.3) 09/09/19 14:13 Direct Bilirubin 0.2 mg/dL (0.0-0.4) 09/09/19 14:13 Neonat Total Bilirubin Not Reportable 09/09/19 14:13 Neonat Direct Bilirubin Not Reportable 09/09/19 14:13 Neonat Indirect Bili Not Reportable 09/09/19 14:13 AST 131 U/L (17-59) H 09/09/19 14:13 ALT 261 U/L (<50) H 09/09/19 14:13 Alkaline Phosphatase 79 U/L (38-126) 09/09/19 14:13 Total Protein 9.0 g/dL (6.3-8.2) H 09/09/19 14:13 Albumin 4.7 g/dL (3.5-5.0) 09/09/19 14:13 Lipase 181.2 U/L (23-300) 09/09/19 14:13 Urine Color JENI 09/09/19 14:13 Urine Appearance SLIGHTLY-CLOUDY 09/09/19 14:13 Urine pH 6.0 (5.0-9.0) 09/09/19 14:13 Ur Specific [place] 1.026 09/09/19 14:13 Urine Protein 100 mg/dL (NEGATIVE) H 09/09/19 14:13 Urine Glucose (UA) NEGATIVE mg/dL (NEGATIVE) 09/09/19 14:13 Urine Ketones NEGATIVE mg/dL (NEGATIVE) 09/09/19 14:13 Urine Blood NEGATIVE (NEGATIVE) 09/09/19 14:13 Urine Nitrite NEGATIVE (NEGATIVE) 09/09/19 14:13 Urine Bilirubin NEGATIVE (NEGATIVE) 09/09/19 14:13 Urine Urobilinogen 4.0 mg/dL (<2.0) H 09/09/19 14:13 Ur Leukocyte Esterase MODERATE (NEGATIVE) H 09/09/19 14:13 Urine WBC (Auto) 56 /HPF 09/09/19 14:13 Urine RBC (Auto) 5 /HPF 09/09/19 14:13 Squamous Epi Cells Auto 1 /HPF 09/09/19 14:13 Amorphous Sediment Auto TRACE /HPF 09/09/19 14:13 Urine Mucus (Auto) RARE /LPF 09/09/19 14:13 Urine Ascorbic Acid NEGATIVE (NEGATIVE) 09/09/19 14:13 SARS-CoV-2 (PCR) NEGATIVE (NEGATIVE) 09/09/19 16:49 Impressions: Chest X-Ray 09/09/19 13:38 IMPRESSION: 1. Low lung volumes limits examination. Mild linear subsegmental parenchymal densities in the lower lungs may be on the basis of atelectasis/infiltrates. Abdomen/Pelvis CT 09/09/19 15:04 IMPRESSION: Acute appendicitis. Plan Time Spent: Less than 30 Minutes
== END 2019-09-11 12:01 | disposition home or self-care (01) | DRG 340 ==
LOC: ER 12:42 → EH 19:55 → 4N 22:27
PROVIDERS: ADMIT Surgery; ATTEND Surgery
PROC: 0DTJ4ZZ Resection of Appendix, Percutaneous Endoscopic Approach (ICD-10-PCS; principal; 2019-09-09 19:30)
DX: K35.32 Acute appendicitis with perforation, localized peritonitis, and gangrene, without abscess (principal); Z20.828 Contact with and (suspected) exposure to other viral communicable diseases
CPT/HCPCS: 36415; 71045; 74177; 80048; 80053; 81001; 82803; 82962; 83605; 83690; 840; 85025; 85610; 87040; 87086; 87635; 88304; 93005; 93010; 94799; 96361; 96365; 96367; 96375; 96376; 99140; 99285; C9290; C9803; J0330; J0690; J0696; J1885; J2250; J2270; J2370; J2405; J2704; J2710; J3010; J3480; J3490; J7120; S0028